=== PATIENT | female | born 1970 | race Caucasian/White ===

== ENCOUNTER 2022-12-28 13:58 | Outpatient (REF) | payer OTHER, SELFPAY ==
--- NOTE | ~2022-12-28 | XR_ITS ---
EXAMINATION: XR CERVICAL SPINE CLINICAL INFORMATION: Radiculopathy cervical region COMPARISON: None available. TECHNIQUE: 4 views of the cervical spine inclusive of flexion and extension views. FINDINGS: Postsurgical changes with interdisc device at C5-C6. Mild anterolisthesis of C4 on C5 with flexion reduces with extension. Remainder of disc space heights are preserved. Mild spondylosis at C6-C7. XR/XR cervical spine 4V IMPRESSION: Postsurgical changes with interdisc device at C5-C6. Mild anterolisthesis of C4 on C5 with flexion reduces with extension.
== END 2022-12-28 13:59 | disposition home or self-care (01) ==
LOC: HO.HOSX 13:58
PROVIDERS: Visit Provider Neurological Surgery
DX: M54.12 Radiculopathy, cervical region (principal)
CPT/HCPCS: 72050

== ENCOUNTER 2022-12-28 13:58 | Outpatient (AMB) | payer OTHER, SELFPAY ==
--- NOTE | 2022-12-28 14:15 | HO.SPINEOV ---
Intake Intake Visit Reasons: Neck pain Intake Note: Ms. Barrett is here today c/o neck pain. MRI done @ [facility]. Emergency Registrar Required: No Assessment & Plan Assessment & Plan (1) Cervical radiculopathy: Comment: Magdalena comes into our office as a self-referral today. She saw Dr. Hager at one of his previous practices, where he performed a C5-C6 ACDF on her 3 years ago. She states that she had good resolution of symptoms with no radicular pain for the last few years. Unfortunately 4 weeks ago she woke up in abruptly began feeling shooting pain down her arm, radiating from her posterior neck, down her shoulder, over the deltoid, across the dorsal surface of her forearm, and into her right 1st and 2nd phalanges. She reports that pain is accompanied by tingling/burning. She reports no left extremity symptoms. She states that she has attempted to utilize [id number]-[id number] remedies such as Tylenol, ibuprofen, pain patches, heat and ice without avail. She is also attempted to utilize companion caregiver and massage therapy without resolution of symptoms. She recently had an MRI of the cervical spine completed after seeing her primary care physician last month. She is concerned because the symptoms are worsening as the days go by, and have now (in the last week) progressed to include dorsal forearm numbness. PMH: Asthma. Social hx: Patient does not smoke, reports no substance use. Medications: Albuterol. Allergies: NKDA. Physical exam: Mobility / function: Patient ambulates well, can rise from a seated position without difficulty. Sensation: Numbness on dorsal surface of R arm. Rest of sensation is grossly intact. CN: II-XII grossly intact. Strength Testing Upper Extremities: - Deltoid 5/5 right 5/5 left - Biceps 5/5 right 5/5 left - Triceps 5/5 right 5/5 left - Wrist Ext 5/5 right 5/5 left - Wrist Flex 5/5 right 5/5 left - Hand pullman car clerk 5/5 right 5/5 left - Interossei 5/5 right 5/5 left Strength Testing Lower Extremities: - Hip flexion 5/5 right 5/5 left - Knee extension 5/5 right 5/5 left - Dorsiflexion 5/5 right 5/5 left - Plantar flex 5/5 right 5/5 left - EHL 5/5 right 5/5 left Reflexes: - Biceps Right - 2+ Left - 2+ - Triceps Right - 2+ Left - 2+ - Patellar Right - 2+ Left - 2+ - Achilles Right - 2+ Left - 2+ - Plantar Right - 2+ Left - 2+ (+) Right sided spurling's (-) Lhermitte's (-) Bocanegra?s sign Imaging review: MRI completed 12/15/22 at [place] shows no acute pathology. Previous C5-C6 ACDF creates extensive artifact. All other levels appear patent. Impression: The patient is a 52-year-old female previously known to Dr. Hager at a previous practice. She underwent a C5-6 ACDF roughly 3 years ago. She states that she had good resolution of symptoms post surgery, and states that her radicular symptoms largely resolved. Unfortunately for we CO something changed and she awoke abruptly in the morning feeling as though she had a return of her radiation/pain down her right upper extremity. She reports no inciting incident and states that nothing helps to relieve her pain. She endorses accompanying paresthesias with the pain in newer onset numbness the last week. Her symptoms are in a classic C5-6 dermatomal distribution. On imaging review we noticed that she has fused between levels of C5-6 despite the use of an artificial disc an attempt to prevent this from occurring. We are suspicious of posterior bone growth impinging the right C6 foramen, and ordered a cervical spine CT to review posterior osseous growth. We will see the patient back in the clinic to review her CT scan results when they are complete. This plan was discussed with Dr. Hager, who evaluated the patient alongside me. He is in agreement. The total time spent with this visit with this patient was 60 minutes reviewing history, physical exam, MRI lumbar spine and XR cervical spine imaging review, and implementation of treatment plan or further diagnostic testing Armen Hager MD,PhD [facility] Code(s): M54.12 - Radiculopathy, cervical region Orders: Orders XR cervical spine 4V Today M54.12 - Radiculopathy, cervical region CT cervical spine wo IV con Today M54.12 - Radiculopathy, cervical region Coding Level of Care Code New Pt Level 5 (33626) Diagnoses Cervical radiculopathy M54.12
== END 2022-12-28 14:59 | disposition home or self-care (01) ==
PROVIDERS: Visit Provider Neurological Surgery
DX: M54.12 Radiculopathy, cervical region (principal)
CPT/HCPCS: 99205